=== PATIENT | female | born 1985 | race Caucasian/White ===

== ENCOUNTER 2024-01-29 15:15 | Emergency (ER) | payer BC, OTHER ==
[2024-01-29] MEDS ORDERED: FLUORESCEIN NA 1 EA STRIP OU ONE (15:23)
[2024-01-29] MEDS ORDERED: TETRACAINE 0.5% HCL 0.6ML DROPPER.BOTTLE OU ONE (15:23)
== END 2024-01-29 15:30 | disposition left against medical advice (07) ==
LOC: FER 15:15
DX: Z53.21 Procedure and treatment not carried out due to patient leaving prior to being seen by health care provider (principal)
CPT/HCPCS: 99281-25